=== PATIENT | male | born 1975 | race Caucasian/White ===

== ENCOUNTER → 2017-10-10 | Outpatient (CLI) | payer BC ==
[2017-10-10 17:57] LABS: HEMATOCRIT 48.9 % (42-52); HEMOGLOBIN 16.5 g/dL (14.0-18.0); MEAN CELL VOLUME 92.6 fL (80-100); MEAN CORPUSCULAR HEMOGLOBIN 31.3 pg (25-34); MEAN CORPUSCULAR HGB CONC 33.7 g/dl (32-36); MEAN PLATELET VOLUME 10.5 fL (7.4-10.4); PLATELET COUNT 359 K/uL (130-400); RED CELL DISTRIBUTION WIDTH CV 13.1 % (11.5-14.5); RED CELL DISTRIBUTION WIDTH SD 44.2 fL (36.4-46.3); WHITE BLOOD COUNT 10.69 K/uL (4.8-10.8)
[2017-10-10 18:15] LABS: ALBUMIN 3.9 gm/dl (3.4-5.0); ALT/SGPT 33 U/L (12-78); BLOOD UREA NITROGEN 16 mg/dl (7-18); CALCIUM 9.2 mg/dl (8.5-10.1); CARBON DIOXIDE 29 mmol/L (21-32); CREATININE 1.28 mg/dl (0.60-1.40); GLUCOSE 97 mg/dl (70-99); POTASSIUM 4.3 mmol/L (3.5-5.1); SODIUM 138 mmol/L (136-145)
[2017-10-10 18:21] LABS: ALKALINE PHOSPHATASE 105 U/L (45-117); AST/SGOT 13 U/L (15-37)
== END | disposition home or self-care (01) ==
LOC: C.LABBFT 11:33
PROVIDERS: ATTEND Urology
DX: N52.9 Male erectile dysfunction, unspecified (principal)

== ENCOUNTER → 2017-11-28 | Outpatient (CLI) | payer BC ==
--- NOTE | 2017-11-28 12:53 | DIAGNOSTIC IMAGING REPORT ---
(TESTICULAR) SCROTUM-CONT HISTORY: Pain EPIDIDYMITIS COMPARISON: None. FINDINGS: Right testis: There are no intratesticular masses. Normal color flow. No hydrocele. The epididymis is unremarkable. Small varicocele. Small hydrocele. Left testis: There are no intratesticular masses. Normal color flow. No hydrocele. The epididymis is unremarkable. Small varicocele and hydrocele IMPRESSION: Normal testicular ultrasound. Small bilateral hydroceles and varicoceles. Normal epididymides bilaterally The above report was generated using voice recognition software. It may contain grammatical, syntax or spelling errors. Electronically signed by: Reyes Vu M.D. 11/28/2017 12:51 PM Dictated Date/Time: 11/28/2017 12:49 PM
== END | disposition home or self-care (01) ==
LOC: C.ULTR 12:04
PROVIDERS: ATTEND Urology
DX: N45.1 Epididymitis (principal)

== ENCOUNTER → 2017-12-29 | Outpatient (CLI) | payer BC ==
[~2017-12-29] MED LIST: OPTIRAY 320 IV PRN
--- NOTE | 2017-12-29 13:46 | DIAGNOSTIC IMAGING REPORT ---
ABDOMEN AND PELVIS CT WITH IV CONTRAST CT DOSE: 1191.11 mGycm HISTORY: I86.1 Bilateral varicoceles R10.30 Groin pain TECHNIQUE: Multiaxial CT images of the abdomen and pelvis were performed following the use of intravenous contrast. A dose lowering technique was utilized adhering to the principles of ALARA. COMPARISON STUDY: None. FINDINGS: Minimal dependent changes seen at the lung bases. No pneumoperitoneum. No pneumatosis. No fractures within the visualized osseous structures. The liver, gallbladder, spleen, adrenal glands, pancreas, and kidneys are unremarkable. No hydronephrosis. Tiny fat-containing umbilical hernia. No retroperitoneal lymphadenopathy. Normal caliber abdominal aorta. The bladder is not well-distended but appears unremarkable. Tiny fat-containing left inguinal hernia. No pelvic lymphadenopathy. No bowel wall thickening or obstruction. A few colonic diverticula. No evidence for diverticulitis. No bowel wall thickening or obstruction. Normal appendix. IMPRESSION: 1. Tiny fat-containing left inguinal hernia and a tiny fat-containing umbilical hernia. 2. No bowel wall thickening or obstruction. 3. A few scattered colonic diverticula. 4. No retroperitoneal masses or lymphadenopathy. Electronically signed by: Aashish Mccullough M.D. 12/29/2017 1:45 PM Dictated Date/Time: 12/29/2017 1:33 PM
== END | disposition home or self-care (01) ==
LOC: C.CTS 12:47
PROVIDERS: ATTEND Urology
DX: I86.1 Scrotal varices (principal); R10.30 Lower abdominal pain, unspecified; K40.90 Unilateral inguinal hernia, without obstruction or gangrene, not specified as recurrent